=== PATIENT | male | born 1995 ===

== ENCOUNTER → 2024-03-30 15:21 | Outpatient (CLI) | payer OTHER, SELFPAY ==
--- NOTE | 2024-03-30 | DI.RAD.S_ITS ---
PROCEDURE: XR ANKLE RT MIN 3V INDICATIONS: right ankle fracture TECHNIQUE: 3 views of the ankle were acquired. COMPARISON: None. FINDINGS: Bones: Age-indeterminate fracture involving the distal tip of the right fibula/lateral malleolus with adjacent chronic appearing ossification. Ankle mortise is normally aligned. No suspicious bony lesions. Soft tissues: No tibiotalar joint effusion. Achilles tendon appears normal. IMPRESSION: Age-indeterminate fracture involving the distal tip of the right fibula/lateral malleolus with adjacent chronic appearing ossification. Dictated by: Nilesh Mendez M.D. on 03/30/2024 at 17:48 Approved by: Nilesh Mednez M.D. on 03/30/2024 at 17:51
== END ==
PROVIDERS: Referring Provider Chiropractor; Visit Provider Chiropractor
DX: S82.61XA Displaced fracture of lateral malleolus of right fibula, initial encounter for closed fracture (principal)
CPT/HCPCS: 73610